=== PATIENT | male | born 1975 | race Caucasian/White ===

== ENCOUNTER 2018-04-10 03:57 | Emergency (ER) | payer MEDICAID ==
[~2018-04-10] VITALS: Ht 165.1 cm; Wt 102.9 kg
[~2018-04-10 03:57] MED LIST: ANR PR; DOCU-144 PO; POLY17PO6 PO; TRAM50TA2 PO
[2018-04-10 03:59] VITALS: Ht 165.1 cm; Wt 102.9 kg
[2018-04-10] MEDS ORDERED: LISI10TA2 PO (05:11)
--- NOTE | 2018-04-10 05:30 | ERD ---
ER Documentation Chief Complaint Chief Complaint elevated BP today, forgot to take meds. mild CP/SOB, no n/v/MIRAMONTES HPI Is a 42-year-old male elevated blood pressure today. He said he forgot to take his meds. He states he felt mildly short of breath but did not have any actual chest pain. He woke up and he took his medicines blood pressure is now normal. Denies headache. Denies nausea vomiting. Denies any focal neurological com plaints. ROS All systems reviewed and are negative except as per history of present illness. Medications Home Meds Reported Medications Lisinopril* (Lisinopril*) 10 Mg Tablet, 10 MG PO DAILY, #30 TAB 04/10/18 Discontinued Scripts Polyethylene Glycol* (Miralax*) 17 Gm Powd.pack, 17 GM PO DAILY, #30 PACKET Prov:MARTINEZ NICOLE NP 11/30/15 Docusate Sodium* (Colace*) 100 Mg Capsule, 100 MG PO BID, #60 CAP Prov:MARTINEZ NICOLE NP 11/30/15 Tramadol HCl (Tramadol HCl) 50 Mg Tablet, 50 MG PO Q6H for SEVERE PAIN LEVEL 7- 10, #20 TAB Prov:MARTINEZ NICOLE NP 11/30/15 Hard Fat/Phenylephrine* (Anusol*) 1 Supp Supp, 1 SUPP RI BID, #24 SUPP Prov:MARTINEZ NICOLE NP 11/30/15 Allergies Allergies: Coded Allergies: No Known Allergy (Unverified , 04/10/18) PMhx/Soc Medical and Surgical Hx: pt denies Surgical Hx Anesthesia Reaction: No Hx Neurological Disorder: No Hx Respiratory Disorders: No Hx Cardiac Disorders: Yes (HTN) Hx Psychiatric Problems: No Hx Alcohol Use: Yes (occasional) Hx Substance Use: No Hx Tobacco Use: No Smoking Status: Never smoker Physical Exam Vitals Vital Signs Date Temp Pulse Resp B/P (MAP) Pulse Ox O2 O2 Flow FiO2 Time Delivery Rate 04/10/18 Nasal 1 04:57 Cannula 04/10/18 99 22 145/100 95 Room Air 04:53 (115) 04/10/18 98.0 111 18 157/92 92 03:59 (113) Physical Exam Const: No acute distress Head: Atraumatic Eyes: Normal Conjunctiva ENT: Normal External Ears, Nose and Mouth. Neck: Full range of motion. No meningismus. Resp: Clear to auscultation bilaterally Cardio: Regular rate and rhythm, no murmurs Abd: Soft, non tender, non distended. Normal bowel sounds Skin: No petechiae or rashes Back: No midline or flank tenderness Ext: No cyanosis, or edema Neur: Awake and alert Psych: Normal Mood and Affect Result Diagram: 04/10/18 0512 Results 24 hrs Laboratory Tests Test 04/10/18 05:12 White Blood Count 7.2 10^3/ul Red Blood Count 4.89 10^6/ul Hemoglobin 15.2 g/dl Hematocrit 44.5 % Mean Corpuscular Volume 91.0 fl Mean Corpuscular Hemoglobin 31.1 pg Mean Corpuscular Hemoglobin Concent 34.2 g/dl Red Cell Distribution Width 12.4 % Platelet Count 209 10^3/UL Mean Platelet Volume 10.9 fl Immature Granulocytes % 0.800 % Neutrophils % 54.4 % Lymphocytes % 31.7 % Monocytes % 6.5 % Eosinophils % 5.8 % Basophils % 0.8 % Nucleated Red Blood Cells % 0.0 /100WBC Immature Granulocytes # 0.060 10^3/ul Neutrophils # 3.9 10^3/ul Lymphocytes # 2.3 10^3/ul Monocytes # 0.5 10^3/ul Eosinophils # 0.4 10^3/ul Basophils # 0.1 10^3/ul Nucleated Red Blood Cells # 0.0 10^3/ul Procedures/MDM EKG: Rate/Rhythm: [Normal Sinus Rhythm] QRS, ST, T-waves: [No changes consistent w/ acute ischemia] Impression: [No evidence of ischemia or arrhythmia] Chest X-ray 1V Interpreted by me: Soft Tissue: No acute abnormalities Bones: No acute abnormalities Mediastinum/Cardiac Silhouette/Lungs: [No acute abnormalities] Medical decision making: Patient's thoracic symptoms have stabilized while in e department and are stable for outpatient follow up. Exam and work up not consistent w/ ischemia, arrhythmia, PE or dissection. Departure Diagnosis: Primary Impression: Hypertension Hypertension type: unspecified Qualified Codes: I10 - Essential (primary) hypertension Condition: Stable BENSON SCHAEFFER Apr 10, 2018 05:30
[2018-04-10 06:20] VITALS: BP 141/98; PULSE 108; RESP 20
== END 2018-04-10 07:21 | disposition home or self-care (01) ==
LOC: E/R 03:57
DX: I10 Essential (primary) hypertension (principal)
CPT/HCPCS: 36415; 71045; 80053; 83880; 84484; 85025; 93005; Z7502